=== PATIENT | male | born 2000 | race Caucasian/White ===

== ENCOUNTER 2019-09-26 22:41 | Emergency (ER) | payer OTHER ==
[2019-09-26 22:53] VITALS: BP 151/74; PULSE 115; RESP 19; TEMP 98.3
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
[2019-09-27 03:11] LABS: Basophils # (A) 0.1 k/uL (0-0.2); Basophils % (A) 0 %; Eosinophils # (A) 0.2 k/uL (0-0.7); Eosinophils % (A) 1 %; HCT 48.2 % (39.0-53.0); HGB 16.2 gm/dL (13.0-17.5); Lymphocytes # (A) 2.7 k/uL (1.0-4.8); Lymphocytes % (A) 18 %; MCHC 33.7 g/dL (31.0-37.0); MCV 86.2 fL (80.0-100.0); Mean Platelet Volume 7.2; Monocytes # (A) 0.5 k/uL (0-1.0); Monocytes % (A) 4 %; Neutrophils # (A) 11.3 k/uL (1.3-7.7); Neutrophils % (A) 76 %; Platelet Count 355 k/uL (150-450); RBC 5.59 m/uL (4.30-5.90); RDW 12.9 % (11.5-15.5); WBC 14.9 k/uL (3.8-10.6)
[2019-09-27 03:16] LABS: ALT 26 U/L (4-49); AST 28 U/L (17-59); African American GFR (CKD) >90 (>60 ml/min/1.73 sqM); Albumin 5.1 g/dL (3.5-5.0); Alkaline Phosphatase 56 U/L (38-126); Anion Gap 11 mmol/L; Blood Urea Nitrogen 12 mg/dL (9-20); Calcium 10.1 mg/dL (8.4-10.2); Carbon Dioxide 23 mmol/L (22-30); Chloride 107 mmol/L (98-107); Glucose 98 mg/dL (74-99); Non-African American GFR(CKD) >90 (>60 ml/min/1.73 sqM); Sodium 141 mmol/L (137-145); Total Bilirubin 0.4 mg/dL (0.2-1.3)
[2019-09-28 11:39] LABS: Hepatitis B Surface AB- Quant 3.5 mIU/mL; Hepatitis B Surface Antibody Non-Reactive (Non-Reactive); Hepatitis C IgG Antibody Non-Reactive (Non-Reactive)
[2019-09-28 13:22] LABS: HIV 1 AB Non-Reactive (Non-Reactive); HIV 2 AB Non-Reactive (Non-Reactive); HIV AB P24 Non-Reactive (Non-Reactive); HIV P24 AG Non-Reactive (Non-Reactive)
== END 2019-09-26 23:57 | disposition home or self-care (01) ==
LOC: EC 22:41
DX: Z77.21 Contact with and (suspected) exposure to potentially hazardous body fluids (principal)
CPT/HCPCS: 36415; 80053; 85025; 86706; 86803; 87340; 87390; 99283

== ENCOUNTER → 2023-09-06 | Outpatient (CLI) | payer OTHER ==
--- NOTE | 2023-09-06 13:24 | US ---
EXAMINATION TYPE: US abdomen complete DATE OF EXAM: 09/06/2023 COMPARISON: NONE CLINICAL INDICATION: Male, 23 years old with history of R10.12 LEFT UPPER QUADRANT PAIN x weeks - con stant dull pain with intermittent sharp pains, patient denies any other signs or symptoms TECHNIQUE: Multiple sonographic images of the abdomen are obtained. FINDINGS: EXAM MEASUREMENTS: Liver Length: 14.6 cm Gallbladder Wall: 0.2 cm CBD: 0.2 cm Spleen: 12.5 cm Right Kidney: 11.7 x 5.0 x 7.1 cm Left Kidney: 12.4 x 6.7 x 5.9 cm Pancreas: Obscured by bowel gas Liver: wnl . Gallbladder: wnl Evidence for sonographic Swenson's sign: No CBD: wnl Spleen: wnl Right Kidney: wnl Left Kidney: wnl Upper IVC: wnl Abd Aorta: wnl Called PA - told to let patient go home and office will call once report and blood work results are i n. The liver is homogenous. The intrahepatic portion of the IVC and proximal abdominal aorta are within normal limits. There is no evidence of cholelithiasis. Common bile duct is unremarkable. The visu alized portions of the pancreas are homogenous. The spleen is unremarkable. Kidneys are symmetric a nd free of hydronephrosis. No renal lesions are seen. IMPRESSION: No evidence for acute abdominal process.
== END | disposition home or self-care (01) ==
LOC: RADUSWWP 12:34
PROVIDERS: ATTEND Family Medicine
DX: R10.12 Left upper quadrant pain (principal)
CPT/HCPCS: 76700

== ENCOUNTER → 2025-01-16 | Outpatient (CLI) | payer BC ==
--- NOTE | 2025-01-16 17:15 | XR ---
EXAMINATION TYPE: XR chest 2V DATE OF EXAM: 01/16/2025 5:10 PM COMPARISON: Prior chest radiograph 07/05/2019. CLINICAL INDICATION: Male, 24 years old with history of J45.20; [facility] TECHNIQUE: XR chest 2V Frontal and lateral views of the chest. FINDINGS: Lungs/Pleura: There is no evidence of pleural effusion, focal consolidation, or pneumothorax. Pulmonary vascularity: Unremarkable. Heart/mediastinum: Cardiomediastinal silhouette is unremarkable. Musculoskeletal: No acute osseous pathology. Other findings: None IMPRESSION: No acute cardiopulmonary disease/process. [facility], , 01/16/2025 5:13 PM
== END | disposition home or self-care (01) ==
LOC: RADXRMAIN 17:00
PROVIDERS: ATTEND Family Medicine
DX: J45.20 Mild intermittent asthma, uncomplicated (principal)
CPT/HCPCS: 71046

== ENCOUNTER → 2025-02-06 | Outpatient (CLI) | payer BC | LOC: CPPFTMAIN 16:22 | PROVIDERS: ATTEND Family Medicine | DX: J45.20 Mild intermittent asthma, uncomplicated (principal) | CPT/HCPCS: 94060; 94726; 94729 ==